=== PATIENT | female | born 1935 | race Caucasian/White ===

== ENCOUNTER 2017-10-05 15:17 | Emergency (ER) | payer MEDICARE ==
[~2017-10-05] VITALS: Ht 152.4 cm; Wt 49.9 kg
[~2017-10-05 15:17] MED LIST: ASPI81EC PO; Cyclobenzaprine5 MG PO; HYDACE5 PO; LEVOTHYROXINE; LEVSOD88 PO; Ultram50 MG PO
[2018-05-16] MEDS ORDERED: LEVSOD75 PO (08:36)
[2018-05-16] MEDS ORDERED: AMLO5 PO (08:48)
[2018-05-16] MEDS ORDERED: Norco 5-325 Ta1 EACH PO (08:58)
== END 2017-10-05 19:47 | disposition home or self-care (01) ==
LOC: ER 15:17
DX: S16.1XXA Strain of muscle, fascia and tendon at neck level, initial encounter (principal); S05.12XA Contusion of eyeball and orbital tissues, left eye, initial encounter; S00.83XA Contusion of other part of head, initial encounter; Z23 Encounter for immunization; Z87.891 Personal history of nicotine dependence; W01.0XXA Fall on same level from slipping, tripping and stumbling without subsequent striking against object, initial encounter
CPT/HCPCS: 72040; 90471; 90714; 99283

== ENCOUNTER 2017-10-18 14:09 | Emergency (ER) | payer MEDICARE ==
[~2017-10-18] VITALS: Ht 152.4 cm; Wt 49.9 kg
[2017-10-18] MEDS ORDERED: Amlodipine Bes2.5 MG PO (16:26)
[2018-05-16] MEDS ORDERED: LEVSOD75 PO (08:36)
[2018-05-16] MEDS ORDERED: AMLO5 PO (08:48)
[2018-05-16] MEDS ORDERED: Norco 5-325 Ta1 EACH PO (08:58)
== END 2017-10-18 17:09 | disposition home or self-care (01) ==
LOC: ER 14:09
DX: I10 Essential (primary) hypertension (principal); Z79.899 Other long term (current) drug therapy; Z86.73 Personal history of transient ischemic attack (TIA), and cerebral infarction without residual deficits; Z87.891 Personal history of nicotine dependence
CPT/HCPCS: 73090; 99283

== ENCOUNTER → 2019-03-26 | Outpatient (CLI) | payer MEDICARE ==
[~2019-03-26] MED LIST changes: +ACETAMINOPHEN500 MG PO; +AMLO5 PO; +ASPI81CH PO; +Amlodipine Bes2.5 MG PO; +ICY HOT 4%-1%76.5 GM TOP; +LEVSOD75 PO; +Norco 5-325 Ta1 EACH PO; +Synthroid88 MCG PO
== END | disposition home or self-care (01) ==
LOC: LAB SHORT 18:02 → LAB EV 18:02
DX: N39.0 Urinary tract infection, site not specified (principal)
CPT/HCPCS: 87086

== ENCOUNTER 2019-05-21 13:44 | Emergency (ER) | payer MEDICARE ==
[~2019-05-21] VITALS: Ht 149.9 cm; Wt 47.6 kg
[~2019-05-21 13:44] MED LIST changes: -ACETAMINOPHEN500 MG PO; -ASPI81CH PO; -ICY HOT 4%-1%76.5 GM TOP; -Synthroid88 MCG PO
[2019-05-21] MEDS ORDERED: ASPI81CH PO (14:01)
[2019-05-21] MEDS ORDERED: Synthroid88 MCG PO (14:01)
[2019-05-21 15:04] LABS: BASOPHILS ABSOLUTE AUTO 0.07 K/mm3 (0.00-0.23); BASOPHILS PERCENT AUTO 1 % (0-2); EOSINOPHILS ABSOLUTE AUTO 0.31 K/mm3 (0.00-0.68); EOSINOPHILS PERCENT AUTO 4 % (0-6); Hematocrit 41.9 % (33.0-51.0); Hemoglobin 13.5 g/dL (11.5-16.0); IMMATURE GRAN ABSOLUTE AUTO 0.03 K/mm3 (0.00-0.10); IMMATURE GRAN PERCENT AUTO 0 % (0-1); LYMPHOCYTES ABSOLUTE AUTO 2.45 K/mm3 (0.84-5.20); LYMPHOCYTES PERCENT AUTO 34 % (21-46); MONOCYTES ABSOLUTE AUTO 0.62 K/mm3 (0.16-1.47); MONOCYTES PERCENT AUTO 9 % (4-13); Mean Corpuscular HGB 29.5 pg (26.0-34.0); Mean Corpuscular HGB Conc 32.2 g/dL (31.5-36.5); Mean Corpuscular Volume 92 fL (80-100); Mean Platelet Volume 8.7 fL (9.1-12.4); NEUTROPHILS ABSOLUTE AUTO 3.68 K/mm3 (1.96-9.15); NEUTROPHILS PERCENT AUTO 51 % (41-73); Platelet Count 213 K/mm3 (150-400); RDW Coefficient Variation 13.9 % (11.7-14.2); RDW Standard Deviation 46.9 fL (35.1-46.3); Red Blood Cell Count 4.57 M/mm3 (3.80-5.20); White Blood Cell Count 7.16 K/mm3 (4.00-11.30)
[2019-05-21 15:30] LABS: Alanine Aminotransfer (ALT/SGP 26 U/L (12-78); Albumin, Blood 3.9 g/dL (3.4-5.0); Alk Phos 70 U/L (50-136); Anion Gap 6 mmol/L (6-16); Aspartate Aminotrans (AST/SGOT 29 U/L (12-37); Bilirubin, Total 0.4 mg/dL (0.1-1.0); Blood Urea Nitrogen 15 mg/dL (8-24); Bun/Creatinine Ratio 15.9 (12.0-20.0); CO2, Blood 29 mmol/L (21-32); Calcium, Blood 9.2 mg/dL (8.5-10.1); Chloride, Blood 103 mmol/L (98-108); Creatinine, Blood 0.94 mg/dL (0.40-1.00); Globulin, Blood 4.1 g/dL (2.2-4.0); Glomerular Filtration Rate 60 (60-); Glucose, Blood 81 mg/dL (70-99); Potassium, Blood 3.7 mmol/L (3.5-5.5); Sodium, Blood 138 mmol/L (136-145); Troponin I <0.015 ng/mL (0.000-0.040)
[2019-05-22] MEDS ORDERED: ICY HOT 4%-1%76.5 GM TOP (15:44)
[2019-05-22] MEDS ORDERED: ACETAMINOPHEN500 MG PO (15:44)
== END 2019-05-21 16:28 | disposition home or self-care (01) ==
LOC: ER 13:44
PROVIDERS: Physician Assistant
DX: I10 Essential (primary) hypertension (principal); M79.601 Pain in right arm; E03.9 Hypothyroidism, unspecified; Z79.899 Other long term (current) drug therapy; Z87.891 Personal history of nicotine dependence
CPT/HCPCS: 36415; 71046; 80053; 84484; 85025; 93005; 93010; 99284-25

== ENCOUNTER 2019-05-22 14:25 | Emergency (ER) | payer MEDICARE ==
[~2019-05-22] VITALS: Ht 152.4 cm; Wt 49.9 kg
[~2019-05-22 14:25] MED LIST changes: +ASPI81CH PO; +Synthroid88 MCG PO
[2019-05-22] MEDS ORDERED: ACETAMINOPHEN500 MG PO (15:44)
[2019-05-22] MEDS ORDERED: ICY HOT 4%-1%76.5 GM TOP (15:44)
== END 2019-05-22 15:54 | disposition home or self-care (01) ==
LOC: ER 14:25
DX: S56.811A Strain of other muscles, fascia and tendons at forearm level, right arm, initial encounter (principal); I10 Essential (primary) hypertension; Z86.73 Personal history of transient ischemic attack (TIA), and cerebral infarction without residual deficits; Z87.891 Personal history of nicotine dependence; X50.0XXA Overexertion from strenuous movement or load, initial encounter
CPT/HCPCS: 36415; 73090; 99283-25

== ENCOUNTER 2020-02-13 19:56 | Emergency (ER) | payer MEDICARE ==
[~2020-02-13] VITALS: Ht 157.5 cm; Wt 49.9 kg
[~2020-02-13 19:56] MED LIST changes: +ACETAMINOPHEN500 MG PO; +ICY HOT 4%-1%76.5 GM TOP
[2020-02-13] MEDS ORDERED: FAMO20 PO (21:57)
== END 2020-02-13 22:32 | disposition short-term general hospital (02) ==
LOC: ER 19:56
DX: S06.6X0A Traumatic subarachnoid hemorrhage without loss of consciousness, initial encounter (principal); S02.40EA Zygomatic fracture, right side, initial encounter for closed fracture; S02.31XA Fracture of orbital floor, right side, initial encounter for closed fracture; S02.40CA Maxillary fracture, right side, initial encounter for closed fracture; Z79.82 Long term (current) use of aspirin; Z79.899 Other long term (current) drug therapy; I10 Essential (primary) hypertension; E03.9 Hypothyroidism, unspecified; Z87.891 Personal history of nicotine dependence; W18.30XA Fall on same level, unspecified, initial encounter
CPT/HCPCS: 70450; 70486; 99284-25

== ENCOUNTER 2020-07-11 13:11 | Inpatient (IN) | payer MEDICARE ==
[~2020-07-11] VITALS: Ht 152.4 cm; Wt 48.9 kg
[~2020-07-11 13:11] MED LIST changes: +FAMO20 PO
[2020-07-11 14:49] LABS: BASOPHILS ABSOLUTE AUTO 0.08 K/mm3 (0.00-0.23); BASOPHILS PERCENT AUTO 1 % (0-2); EOSINOPHILS ABSOLUTE AUTO 0.07 K/mm3 (0.00-0.68); EOSINOPHILS PERCENT AUTO 1 % (0-6); Hematocrit 42.3 % (33.0-51.0); Hemoglobin 14.1 g/dL (11.5-16.0); IMMATURE GRAN ABSOLUTE AUTO 0.05 K/mm3 (0.00-0.10); IMMATURE GRAN PERCENT AUTO 0 % (0-1); LYMPHOCYTES ABSOLUTE AUTO 1.52 K/mm3 (0.84-5.20); LYMPHOCYTES PERCENT AUTO 14 % (21-46); MONOCYTES ABSOLUTE AUTO 0.72 K/mm3 (0.16-1.47); MONOCYTES PERCENT AUTO 7 % (4-13); Mean Corpuscular HGB Conc 33.3 g/dL (31.5-36.5); Mean Corpuscular Volume 90 fL (80-100); Mean Platelet Volume 8.6 fL (9.1-12.4); NEUTROPHILS ABSOLUTE AUTO 8.69 K/mm3 (1.96-9.15); NEUTROPHILS PERCENT AUTO 78 % (41-73); Platelet Count 175 K/mm3 (150-400); RDW Coefficient Variation 13.6 % (11.7-14.2); RDW Standard Deviation 45.1 fL (35.1-46.3); White Blood Cell Count 11.13 K/mm3 (4.00-11.30)
[2020-07-11 15:18] LABS: Anion Gap 10 mmol/L (6-16); Blood Urea Nitrogen 12 mg/dL (8-24); Bun/Creatinine Ratio 14.7 (12.0-20.0); CO2, Blood 23 mmol/L (21-32); Chloride, Blood 101 mmol/L (98-108); Creatinine, Blood 0.81 mg/dL (0.40-1.00); Glomerular Filtration Rate >60 (60-); Glucose, Blood 154 mg/dL (70-99); Potassium, Blood 3.3 mmol/L (3.5-5.5); Sodium, Blood 134 mmol/L (136-145)
--- NOTE | 2020-07-11 20:00 | NUR ---
ADMISSION NOTE RECEIVED HAND OFF FROM Velvet LAY RN IN ER USING SBAR. TRANSPORTED TO ROOM VIA WHEELCHAIR. TRANSFERED TO BED WITH STANDBY ASSIST, TOLERATED WELL. SON AT BEDSIDE TO ASSIST WITH CARE SINCE PT IS IMPULSIVE AND JUMPS OUT OF BED PER SON. AAO X4, FOLLOWS ALL COMMANDS. UNABLE TO TOLERATE MUCH MOVEMENT WITH RIGHT HIP, BUT ABLE TO MOVE ALL OTHER EXTREMITITES WITH EASE. SON STATES THAT PT IS FORGETFUL AND GETS CONFUSED EASILY. RESPIRATIONS EVEN AND UNLABORED ON ROOM AIR. LUNG SOUNDS CLEAR BILATERALLY. ABDOMEN SOFT AND NONDISTENDED. BOWEL SOUNDS NOTED IN ALL QUADS. DENIES HAVING BM TODAY, SON STATES THAT HE DOESN'T THINK SHE DID EITHER. NEITHER ABLE TO CONFIRM DATE OF LAST BM. LEFT FA 20G PIV IS PATENT, FLUSHING WITH EASE WHILE INFUSING NS WITH 20MEQ KCL AT 100ML/HR. PIV SITE REINFORCED WITH COBAN AFTER PT STATED THAT IT DIDN'T FEEL SECURE. SCD'S APPLIED TO BLE. PT IS ORDERED NPO AT THIS TIME. ORAL CARE SUPPLIES PLACED AT BEDSIDE. DENIES FURTHER NEEDS OR WANTS AT THIS TIME. ADMISSION ASSESSMENT IN PROGRESS. SAFETY MEASURES IN PLACE. WILL CONTINUNE TO MONITOR.
--- NOTE | 2020-07-11 21:19 | NUR ---
TELEMETRY APPLIED PER MD ORDER. NSR 63 PER SANDEE MCHUGH. SAFETY MEASURES IN PLACE. WILL CONTINUE TO MONITOR.
[2020-07-12 05:27] LABS: Anion Gap 3 mmol/L (6-16); Blood Urea Nitrogen 10 mg/dL (8-24); Bun/Creatinine Ratio 12.6 (12.0-20.0); CO2, Blood 28 mmol/L (21-32); Calcium, Blood 8.3 mg/dL (8.5-10.1); Chloride, Blood 110 mmol/L (98-108); Creatinine, Blood 0.79 mg/dL (0.40-1.00); Glomerular Filtration Rate >60 (60-); Glucose, Blood 79 mg/dL (70-99); Potassium, Blood 3.7 mmol/L (3.5-5.5); Sodium, Blood 141 mmol/L (136-145)
--- NOTE | 2020-07-12 06:09 | NUR ---
SHIFT SUMMARY LYING IN LOW FOWLERS WITH EYES CLOSED. AAO X4, LEUNG, FOLLOWS ALL COMMANDS. HAS RESTED OFF AND ON. NO SIGNIFICANT CHANGES THROUGHOUT SHIFT. MEDICATED FOR PAIN PRN PER MD ORDERS. HAS BEEN NPO SINCE ADMISSION X MEDS PER MD ORDERS FOR SX TODAY. DENIES PAIN, DISCOMFORT, OR FURTHER NEEDDS AT THIS TIME. SAFETY MEASURES IN PLACE. WILL CONTINUE TO MONITOR AND GIVE HAND OFF TO ONCOMING SHIFT USING SBAR.
[2020-07-12 08:26] LABS: Influenza A, PCR Negative (NEGATIVE); Influenza B, PCR Negative (NEGATIVE); Resp Syncytial Virus, PCR Negative (NEGATIVE); SARS-Cov-2 (COVID-19) PCR, MMC Negative (NEGATIVE)
--- NOTE | 2020-07-12 13:29 | NUR ---
PT TRANSPORTED TO [facility]. AGREES WITH PLANNED SURGERY. PT ALERT TO NAME AND BIRTHDAY. PT HAS DEMENTIA. SON AT BEDSIDE. WEDDING RING GIVEN TO SON.
--- NOTE | 2020-07-12 13:50 | NUR ---
REPORT TO ISAIAS RAZO RN.
--- NOTE | 2020-07-12 14:03 | NUR ---
REPORT FROM TATIANA RODRIGUEZ, ASSUMED CARE AT [id number]
--- NOTE | 2020-07-12 17:24 | NUR ---
Per admit trigger, I attempted to meet with Mrs. Ag about ACP. She was in surgery, but her son was in room. He told me that his mom had an ACP document and "she doesn't want any heroics." I checked EMR and we don't have POSLT or AD on file for Mrs. Ag. Advised son to discuss with pt. He did not appear interested but took an Advacned Directive packet. Advised I would remain available.
--- NOTE | 2020-07-12 17:30 | NUR ---
POST OP ARRIVES TO ROOM VIA HOSPITAL BED. R THIGH HAS MOD SWELLING W/ GAUZE & PRESSURE TAPE TO 1 SITE. PLEASANTLY CONFUSED; NO CHANGES FROM PREOP TO MENTATION. RECOGNIZES SON. C/O HIP PAIN. REPOSITIONED SHE WAS MEDICATED IN PACU AND DROWSY. PPP. TELE REPLACED. VSS.
--- NOTE | 2020-07-13 05:29 | NUR ---
SHIFT SUMMARY: PT POD#1 FOR R HIP PINNING. ALERT TO SELF AND FAMILY AND FOLLOWING DIRECTIONS. PT VERY PLEASANT AND COOPERATIVE IN BEGINNING OF THE SHIFT BUT APPEARS TO BE AGITATED THIS MORNING. DISORIENTED TO EVENT AND SURROUNDINGS. PT OCCASIONALLY PULLING OFF DRESSING TO RIGHT HIP REQUIRING 3 DIFFERENT DRESSING CHANGES. WOUND BEING CLEANSED EACH TIME. PT 2 MODERATE ASSIST STAND/PIVOT TO BEDSIDE COMMODE. CONTINENT AND VOIDING SMALL AMOUNTS. PAIN BEING MANAGED WITH TYLENOL PER EMAR. NEW IV PLACED TO RT WRIST WITH FLUIDS AND ABX INFUSING. SON AT BEDSIDE AND IS HELPFUL WITH CARE.
--- NOTE | 2020-07-13 16:07 | NUR ---
REPORT TO Marylu BOOTHE AT THIS TIME. PATIENT CONTINENT OF URINE, UP TO BSC. DRESSING TO R HIP C/D/I. APPETITE GOOD. APAP ADMIN FOR R HIP DISCOMFORT. SON AT BEDSIDE MOST OF SHIFT, D/C SOLDERER ASSEMBLY REPAIR IN TO SEE AND ALSO SPOKE TO DAUGHTER BY PHONE WHO IS OUT OF STATE, PATIENT CONFUSED, VERY PLEASANT AND COOPERATIVE AND ABLE TO FOLLOW INSTRUCTIONS FROM THERAPY.
--- NOTE | 2020-07-13 16:07 | NUR ---
Received call from Bedside RN reporting Pt and family has completed an advanced directive and is requesting further instruction. Pt sitting in chair upon arrival. Son at bedside. Son confirms Pt's picture ID is present. Called and spoke with Loin Pullerrichard Munoz. Relayed request for notary. Discussed considering completing POLST. Son is agreeable. Educated on life sustaining measures and each section to complete. Loin Puller Tammy present to notarize. Instructed son to call with any question or concerns with completing POLST. Palliative Care will remain available.
--- NOTE | 2020-07-13 16:38 | NUR ---
Spiritual care note: Advanced Directive notarized by me. Copies made for family. I hand-carried one copy to Medical Records.
--- NOTE | 2020-07-14 05:28 | NUR ---
PATIENT REQUIRES 2 PEOPLE TO GET TO BS. SHE DOES NOT USE THE WALKER INSTRUCTED. SHE WAKES IN THE NIGHT WITH A STRONG URGE TO VOID AND STARTS TO GET OOB ON HER OWN, THE BED ALARM HAS BEEN ON ALLNIGHT AND WE HAVE BEEN RESPONDING WITHING A FEW SECONDS. THE BED ALARM WAS SET TO A MORE SENSITIVE SETTING AND THIS ALLOWS US TO BE IN THE ROOM BEFORE HER LEGS ARE OVER THE SIDE OF THE BED. NO ACUTE CHANGES.
--- NOTE | 2020-07-14 07:17 | NUR ---
pt tearful assisted to bsc to void passed gas pt worried that her animals are not being cared for pt's son at bedside tried to console pt still unsure
--- NOTE | 2020-07-14 08:18 | NUR ---
MEDS GIVEN SCHED EATING BREAKFAST
--- NOTE | 2020-07-14 09:26 | NUR ---
pt oob in recliner with ot
--- NOTE | 2020-07-14 13:10 | NUR ---
dr rodriguez by to see pt iv sl pt sitting up in chair
--- NOTE | 2020-07-14 16:28 | NUR ---
PT SITTING UP IN CHAIR
--- NOTE | 2020-07-14 17:03 | NUR ---
JOSEMANUEL DELIVERED PT'S WC AND BSC PT GETTING HOMSICK AGAIN RE HER PETS HAD A DISCUSSION RE IT GAVE HER A SNACK AND REASSURED HER
--- NOTE | 2020-07-14 17:51 | NUR ---
[facility] CARE VISIT MADE THIS AM. SON AT BEDSIDE AND PT WAS ASLEEP IN RECLINED CHAIR ON MY FIRST VISIT. Son had fully completed and notorized advanced directive for me from completion yesterday and also wanted to complete a POLST, which we did, based on pt's expressed wishes in her AD. Pt and son request DNR, limited treatment. This was signed by and copies made for chart, EMR, son. When I returned pt was wide awake and pleasantly confused. She wanted to get up and get on with her day .. to "clean the kitchen first". Pt denies pain and said to me, "Did you know I broke my hip?!". She thanked me for my help and then continued on in conversatin with her son. Code status order changed this hazel per pt/surrogate decision makers wishes and AD/POLST. Case conferenced with RN after my visit also. Plan appears to be for pt to go to SNF for rehab when released from the hospital.
--- NOTE | 2020-07-15 05:47 | NUR ---
SHIFT SUMMARY POD 3 RIGHT HIP PINNING. AQUACEL APPEARS CDI, BRUISING AND SWELLING NOTED. PT REFUSED ICE TO HIP AND SCD'S. UP TO BATHROOM AND BSC SEVERAL TIMES T/O SHIFT W/1 ASSIST/GB/FWW. IS VOIDING AND HAD 1 LARGE BM TODAY. PAIN MANAGED WITH TYLENOL. FAMILY ASLEEP AT BEDSIDE. PT CURRENTLY RESTING IN BED WITH CALL LIGHT IN REACH AND BED ALARM ON FOR SAFETY. PLAN FOR POSSIBLE. D/C HOME TODAY. WILL CONT TO MONITOR AND GIVE REPORT TO ONCOMING RN.
--- NOTE | 2020-07-15 16:26 | NUR ---
DISCHARGE AT 1500 PT DC'D WITH SON VIA W/C ASSISTED BY ME. PT ALERT/ORIENTED WITH BLAKE CONFUSION. HX DEMENTIA. PT REPORTS PASSING GAS AND BM YESTERDAY. SHE IS STAYING IN A FRIENDS HOUSE. PT DENIES N/V, CHESTPAIN, SOB, NUMBNESS AND TINGLING SENSATION. PT R HIP W/ AQUACEL DRESSING CDI. DISCHARGE INSTRUCTIONS GIVEN TO PT AND SON. 3 XTRA DRESSING WAS GIVEN ALONG W/ DC PAPERS. PT ADVISE TO F/U W/ DR IN 2 WEEKS. ASA WAS ADVISED TO TAKE, SEE EMR FOR ORDER.
== END 2020-07-15 15:30 | disposition home or self-care (01) | DRG 482 ==
LOC: ER 13:11 → SURS 19:25
PROVIDERS: Emergency Medicine; Orthopaedic Surgery; ADMIT Internal Medicine
PROC: 3E0234Z Introduction of Serum, Toxoid and Vaccine into Muscle, Percutaneous Approach (ICD-10-PCS; 2020-07-11)
PROC: 0QH634Z Insertion of Internal Fixation Device into Right Upper Femur, Percutaneous Approach (ICD-10-PCS; principal; 2020-07-12 10:15)
DX: S72.011A Unspecified intracapsular fracture of right femur, initial encounter for closed fracture (principal); F03.90 Unspecified dementia, unspecified severity, without behavioral disturbance, psychotic disturbance, mood disturbance, and anxiety; Z66 Do not resuscitate; Z23 Encounter for immunization; Z20.828 Contact with and (suspected) exposure to other viral communicable diseases; E03.9 Hypothyroidism, unspecified; E87.6 Hypokalemia; I10 Essential (primary) hypertension; Z79.82 Long term (current) use of aspirin
CPT/HCPCS: 0241U; 36415; 70450; 73502; 80048; 85025; 97110; 97116; 97162; 97166; 97530; 97535; 99285-25; A9270; C1713; C1769; G0008; G0378; J0690; J1170; J2405; J3010; J3480; J7120; Q2038